=== PATIENT | male | born 1990 | race Caucasian/White ===

== ENCOUNTER 2017-03-19 08:29 | Day surgery (SDC) | payer OTHER ==
[2017-03-16 17:53] VITALS: BMI 27.2
[2017-03-19] VITALS (16 sets, daily range): BP systolic 116–150; BP diastolic 64–77; PULSE 57–92; RESP 11–23; Ht 180.3 cm; Wt 84.5 kg
[~2017-03-19] VITALS: Ht 180.3 cm; Wt 84.5 kg
[~2017-03-19 08:29] MED LIST: BUPIVACAINE 0.5% (SDV) 30 ML, morphine SULFATE (PF) 8 MG, EPINEPHrine 0.3 MG, KETOROLAC... IRR ONE; BUPIVACAINE 0.5% (SDV) 30 ML, morphine SULFATE (PF) 8 MG, EPINEPHrine 0.3 MG, KETOROLAC... IRR SCH; CEFAZOLIN 2 GM/50 ML (PMX) 50 ML IVPB ONE; CEFAZOLIN 2 GM/50 ML (PMX) 50 ML IVPB SCH; DEXAMETHASONE 1 MG TAB PO ONE; DEXAMETHASONE 1 MG TAB PO SCH; GABAPENTIN 300 MG CAP PO ONE; GABAPENTIN 300 MG CAP PO SCH; LEVE750T70; TRANEXAMIC ACID 1,000 MG in DEXTROSE 5% 90 ML IVPB ONE; TRANEXAMIC ACID 1,000 MG in DEXTROSE 5% 90 ML IVPB SCH; traMADol 50 MG TAB PO ONE; traMADol 50 MG TAB PO SCH
[2017-03-19] MEDS ORDERED: LEVE750T70 PO (09:14)
--- NOTE | 2017-03-19 09:20 | HPN ---
Date/Time of Note Date/Time of Note DATE: 03/19/17 TIME: 09:19 Interval H&P Admission Note Pt. seen H&P reviewed: No system changes YOLI KIM MD Mar 19, 2017 09:20
[2017-03-19] MEDS ORDERED: BUPIVACAINE 0.5%/EPI (SDV) 30 ML INJ ONE (10:45)
[2017-03-19] MEDS ORDERED: CA CHLORIDE 10% 10 ML SYRINGE ONE (10:45)
[2017-03-19] MEDS ORDERED: THROMBIN 5000 UNIT VIAL ONE (10:45)
[2017-03-19] MEDS ORDERED: POLYMYXIN/BACITRACIN 1L IRRIG ONE (10:45)
[2017-03-19] MEDS ORDERED: PROPOFOL 20 ML ONE (11:01)
[2017-03-19] MEDS ORDERED: ONDANSETRON 4 MG INJ ONE (11:01)
[2017-03-19] MEDS ORDERED: NEOSTIGMINE 3 MG/3 ML SYRINGE ONE (11:01)
[2017-03-19] MEDS ORDERED: ROCURONIUM 50 MG INJ ONE (11:01)
[2017-03-19] MEDS ORDERED: FENTAnyl 50 MCG/ML VIAL ONE ×2 (11:01→12:50)
[2017-03-19] MEDS ORDERED: MIDAZOLAM 1 MG/ML 2 ML INJ ONE (11:01)
[2017-03-19] MEDS ORDERED: GLYCOPYRROLATE 0.4 MG INJ ONE (11:01)
[2017-03-19] MEDS ORDERED: CEFAZOLIN 1 GM INJ ONE (11:01)
[2017-03-19] MEDS ORDERED: DEXAMETHASONE 4 MG/ML 1 ML INJ ONE (11:02)
[2017-03-19] MEDS ORDERED: ROPIVACAINE 0.5 % 30 ML VIAL ONE (11:06)
[2017-03-19] MEDS ORDERED: MEPERIDINE 25 MG INJ IV PRN (12:30)
[2017-03-19] MEDS ORDERED: DIPHENHYDRAMINE 50 MG INJ IV PRN (12:30)
[2017-03-19] MEDS ORDERED: IPRATROPIUM (NEB) 0.5 MG/2.5 ML AMP HHN PRN (12:30)
[2017-03-19] MEDS ORDERED: ONDANSETRON 4 MG INJ IV PRN (12:30)
[2017-03-19] MEDS ORDERED: HYDROmorphONE (0.2 MG/ML) 10ML SYG IV PRN ×3 (12:30)
[2017-03-19] MEDS ORDERED: TRIMETHOBENZAMIDE 100 MG/ML VIAL IM PRN (12:30)
[2017-03-19] MEDS ORDERED: hydrALAzine 20 MG INJ IV PRN (12:30)
[2017-03-19] MEDS ORDERED: OXYCODONE/ACETAMINOPHEN (5/325) TAB PO PRN ×2 (12:30)
[2017-03-19] MEDS ORDERED: EPHEDrine SULFATE 50 MG/5 ML SYG IV PRN (12:30)
[2017-03-19] MEDS ORDERED: ALBUTEROL 0.083% (NEB) 2.5 MG/3 ML AMP HHN PRN (12:30)
[2017-03-19] MEDS ORDERED: LABETALOL HCL 20MG INJ IV PRN (12:30)
[2017-03-19] MEDS ORDERED: MIDAZOLAM 1 MG/ML 2 ML INJ IV PRN (12:30)
[2017-03-19] MEDS ORDERED: FENTAnyl 50 MCG/ML VIAL IV PRN ×3 (12:30)
[2017-03-19] MEDS ORDERED: SUCCINYLCHOLINE CHLORIDE 100 MG/5 ML SYG IV ONE (12:49)
[2017-03-19] MEDS ORDERED: SUGAMMADEX SODIUM 200 MG/2 ML VIAL IV ONE (13:43)
--- NOTE | 2017-03-19 13:47 | PDOCDIS ---
Discharge Instructions DIAGNOSIS Discharge Diagnosis Right shoulder arthritis with recurrent instability CONDITION Patient Condition: Good HOME CARE INSTRUCTIONS: Diet Instructions: Regular ACTIVITY: Activity Restrictions: Slowly Increase Activity Keep Limb Elevated Bathing Restrictions: Shower FOLLOW UP/APPOINTMENTS Follow-up Plan 2 weeks SCHOOL/WORK RELEASE May return to School/Work with: With Restrictions School/Work Release Comment: 5 pounds tabletop usage for 6 weeks YOLI KIM MD Mar 19, 2017 13:47
--- NOTE | 2017-03-19 13:53 | OPR ---
Date/Time of Note Date/Time of Note DATE: 03/19/17 TIME: 13:48 Operative Report Procedure Date: Mar 19, 2017 Preoperative Diagnosis Recurrent right shoulder instability Postoperative Diagnosis 1. Recurrent right shoulder instability 2. Right shoulder severe posttraumatic arthritis Operation/Procedure Performed Right open capsular repair with excision of osteophytes. Surgeon see signature line Regional Commercial Sales Manager Jamin Soto MD Anesthesia Type: general Estimated Blood Loss: 10 - 50 ml's Transfusion none Specimen None Grafts/Implants none Complications none Procedure Description DELI MANAGER SURGEON: Jamin Soto MD was asked to be present for this case at my request. Assistance was necessary as a result of the highly technical nature of this operation. When performing an open total shoulder replacement, it is critical to have a trained automotive parts counter assistant who is an expert in handling the extremity and assisting the surgeon in tasks such as suture management and knot- tying techniques as well as implants. This assistance cannot be performed by a inorganic chemical technician, as it is considered an integral part of the procedure and the automotive parts counter assistant should be compensated for their time. PROCEDURE IN DETAIL: Following the administration of general anesthesia supplemented with a peripheral nerve block for postoperative pain control, the patient was examined under anesthesia. Examination of the right shoulders reveals significant crepitus with abduction and external rotation. His passive range of motion was 120 of forward flexion with a relatively solid endpoint. His abduction was maximal at 80 and his maximal external rotation was 60. There is significant glenohumeral crepitus with all of these rotations. There was more posterior translation and anterior translation. The patient was then placed in the beach chair position. Sterile prep and drape was then undertaken. An extended deltopectoral incision was then carried through the interval exposing the conjoined tendon and retracting it medially. The subscapularis was incised in the middle third and the capsule was then identified.. Capsule was then incised along the medial edge of the glenoid. Examination of the glenohumeral joint revealed very severe arthritic changes including peripheral osteophytes along the anterior and inferior glenoid as well as the anterior and inferior humerus. Several osteophytes were removed. The glenoid cartilage was then evaluated and there was the evident bony avulsion more medially. However the anterior-inferior glenoid was actually relatively preserved with significant arthritic changes. Based on the significant arthritic changes, the decision was then made to perform only a capsular closure as any further reconstruction would probably limit his range of motion and potentially exacerbate the severe arthritic changes that were noted. The capsule was then closed using interrupted #2 permanent sutures. A stable joint was obtained. The wound was then thoroughly irrigated.. The deep tissues were approximated using #1 suture followed by closure of the deep layer using 2-0 Monocryl. The skin was closed using 4-0 Monocryl suture, and a Prenio dressing. An Ultrasling was then applied. The patient was awakened and transported to the recovery room in stable condition. Estimated blood loss for this procedure was 50 cc. TRANSFUSION REQUIRED: [] SPECIMENS: [] GRAFTS/IMPLANTS: [] TUBES/DRAINS: [] COMPLICATIONS: [] PT. CONDITION POST PROCEDURE: [] DISPOSITION: [] YOLI KIM MD Mar 19, 2017 13:53
== END 2017-03-19 16:35 | disposition home or self-care (01) ==
LOC: SDS 08:29
PROVIDERS: ATTEND Orthopaedic Surgery
DX: M25.311 Other instability, right shoulder (principal); M19.111 Post-traumatic osteoarthritis, right shoulder
CPT/HCPCS: 23929; 86999; J0690; J1100; J2175; J2250; J2405; J2795; J3010; Z7512; Z7610; J0171; J0735; J1170; J1885; J2274; J2710; J3370